=== PATIENT | female | born 1995 | race Caucasian/White ===

== ENCOUNTER 2021-03-29 10:12 | Day surgery (SDC) | payer SELFPAY ==
[2021-03-29 10:48] VITALS: BMI 21.1
[2021-03-29] MEDS ORDERED: hydrALAZINE 20 MG/ML VIAL SLOW IVP PRN (11:33)
[2021-03-29 12:22] LABS: Bilirubin Neg (Negative); Blood, Urine Negative (Negative); Clarity Slightly Cloudy (Clear); Glucose, Urine (Dipstick) Normal (Negative); Ketone, Urine Negative (Negative); Leukocyte Negative (Negative); Nitrite Negative (Negative); Protein, Urine (Dipstick) 15 mg/dl (Neg-Trace); Urobilinogen Normal mg/dL (Less than 2)
[2021-03-29 12:33] LABS: Bacteria/HPF 2+ HPF (None Seen); RBC/HPF 0-3 HPF (0-3); Squamous Epithelial 0-3 HPF (0-3); WBC/HPF 0-3 HPF (0-3)
== END 2021-03-29 13:45 | disposition home or self-care (01) ==
LOC: CSHLD/OP 10:12
PROVIDERS: ATTEND Obstetrics & Gynecology
DX: O99.891 Other specified diseases and conditions complicating pregnancy (principal); O99.342 Other mental disorders complicating pregnancy, second trimester; R10.32 Left lower quadrant pain; F32.A Depression, unspecified; Z3A.35 35 weeks gestation of pregnancy; Z3A.25 25 weeks gestation of pregnancy; Z79.899 Other long term (current) drug therapy
CPT/HCPCS: 76770; 81001; 99282

== ENCOUNTER 2021-07-13 05:43 | Inpatient (IN) | payer SELFPAY ==
[2021-07-13 06:33] VITALS: BMI 24.7
[2021-07-13] MEDS ORDERED: Bupivacaine HCl 0.5%/Epinephrine 1:200,000/PF 30 ml Vial ONE (07:00)
[2021-07-13] MEDS ORDERED: ePHEDrine Sulfate 50 MG/10 ML VIAL ONE (07:00)
[2021-07-13] MEDS ORDERED: Promethazine HCl 25 MG/ML VIAL IM PRN ×2 (08:55→22:31)
[2021-07-13] MEDS ORDERED: Ondansetron PF 4 MG/2 ML Vial IVP PRN ×2 (08:55→22:31)
[2021-07-13] MEDS ORDERED: hydrALAZINE 20 MG/ML VIAL SLOW IVP PRN (08:55)
[2021-07-13] MEDS ORDERED: Acetaminophen 500 MG TAB PO PRN (08:55)
[2021-07-13] MEDS ORDERED: Butorphanol Tartrate 1 MG/ML VIAL SLOW IVP PRN (08:55)
[2021-07-13] MEDS ORDERED: Lidocaine 1% (PF) 30 ML VIAL SC PRN (08:55)
[2021-07-13] MEDS ORDERED: NS w/ Oxytocin 30 units 500 ML IV SCH (09:00)
[2021-07-13 09:20] LABS: Hemoglobin 10.5 g/dL (12.0-15.5); Mean Corpuscular Volume 84.8 fl (81.6-98.3); Mean Platelet Volume 10.9 fl (7.4-10.4); Platelet Count 226 10x3/uL (150-450); RBC Distribution Width 12.7 % (11.5-14.5); Red Blood Cell (RBC) Count 3.75 10x6/uL (3.90-5.03); White Blood Cell (WBC) Count 10.9 10x3/uL (3.5-10.5)
[2021-07-13 09:39] LABS: #Monocytes 1.2 10x3/uL (0.0-1.1); #Neutrophils 11.5 10x3/uL (1.5-8.4); %Basophils 0.1 % (0.0-2.0); %Eosinophils 0.3 % (0.0-6.0); %Monocytes 8.4 % (0.0-10.0); %Neutrophils 81.7 % (40.0-75.0); Hemoglobin 10.6 g/dL (12.0-15.5); Mean Corpuscular HGB CONC 33.9 g/dL (32.0-36.0); Mean Corpuscular Volume 82.6 fl (81.6-98.3); Mean Platelet Volume 10.3 fl (7.4-10.4); Platelet Count 208 10x3/uL (150-450); RBC Distribution Width 12.9 % (11.5-14.5); Red Blood Cell (RBC) Count 3.79 10x6/uL (3.90-5.03); White Blood Cell (WBC) Count 14.1 10x3/uL (3.5-10.5)
[2021-07-13 10:19] LABS: HIV (1/2) Antibody/Antigen Non-Reactive (NonReactive); HIV 1/2 INDEX 0.06 S/CO (<1.00); Hep B Surf Ag Non-Reactive S/CO (NonReactive); Syphilis Antibody Nonreactive (Nonreactive); Syphilis Antibody Index 0.05 S/CO (<1.00 Non-Reactive)
[2021-07-13 10:34] LABS: HBSAg Index 0.17 S/CO (0-0.99)
[2021-07-13] MEDS ORDERED: Oxytocin 10 UNITS/ML VIAL ONE (14:58)
[2021-07-13] MEDS ORDERED: Misoprostol 200 MCG TAB ONE (14:59)
[2021-07-13] MEDS ORDERED: Fentanyl 2 mcg/Bup 0.1% Cadd 100 ML ONE (22:03)
[2021-07-13] MEDS: Lactated Ringer's 1,000 ML IV SCH (22:12)
[2021-07-13] MEDS ORDERED: diphenhydrAMINE 50 MG/ML VIAL IVP PRN (22:31)
[2021-07-13] MEDS ORDERED: Lactated Ringer's 500 ML IV PRN (22:31)
[2021-07-13] MEDS ORDERED: Hydrocerin (Eucerin) Cream 120 gm Jar TOP PRN (22:31)
[2021-07-13] MEDS ORDERED: Acetaminophen 325 MG TAB PO PRN (22:31)
[2021-07-13] MEDS ORDERED: ePHEDrine Sulfate 50 MG/10 ML VIAL SLOW IVP PRN (22:31)
[2021-07-13] MEDS ORDERED: Naloxone HCl 0.4 mg/ml Vial IVP PRN ×2 (22:31)
[2021-07-13] MEDS ORDERED: Fentanyl 2 mcg/Bupivacaine 0.1% Cassette 100 ML EPIDURAL SCH (22:45)
[2021-07-13] MEDS ORDERED: Communication Order-Pharmacy FS SCH (22:45)
[2021-07-14] MEDS ORDERED: Ibuprofen 800 MG TAB ONE (04:07)
[2021-07-14] MEDS ORDERED: Ondansetron PF 4 MG/2 ML Vial IVP PRN (06:15)
[2021-07-14] MEDS ORDERED: Bisacodyl 10 MG SUPP PR PRN (06:15)
[2021-07-14] MEDS ORDERED: HYDROcodone/Acetaminophen 5/325 mg Tablet PO PRN ×2 (06:15)
[2021-07-14] MEDS ORDERED: NS w/ Oxytocin 30 units 500 ML IV SCH (06:15)
[2021-07-14] MEDS ORDERED: Milk Of Magnesia 30 ML UDCUP PO PRN (06:15)
[2021-07-14] MEDS ORDERED: hydrALAZINE 20 MG/ML VIAL SLOW IVP SCH (06:15)
[2021-07-14] MEDS ORDERED: Boostrix 0.5 ML (Tdap) VIAL IM ONE (06:30)
[2021-07-14] MEDS: Docusate Calcium (SURFAK) 240 MG CAP PO SCH ×2 (10:52→21:16)
[2021-07-14] MEDS: Prenatal Vitamin 1 TAB PO SCH (10:52)
[2021-07-14 11:10] LABS: SARS-CoV-2 NAA Rapid Test Not Detected (NotDetected)
[2021-07-14] MEDS: Ibuprofen 800 MG TAB PO SCH ×2 (13:39→21:16)
[2021-07-14] MEDS: Lactated Ringer's 1,000 ML IV SCH ×2 (19:30→19:31)
[2021-07-14] MEDS: Ferrous Sulfate 325 MG TAB PO SCH (19:32)
[2021-07-15] MEDS: Lactated Ringer's 1,000 ML IV SCH ×2 (01:55→10:28)
[2021-07-15] MEDS: Ibuprofen 800 MG TAB PO SCH (06:06)
[2021-07-15 07:51] VITALS: BP 99/52; TEMP 98.2
[2021-07-15] MEDS: Ferrous Sulfate 325 MG TAB PO SCH (08:00)
[2021-07-15] MEDS: Docusate Calcium (SURFAK) 240 MG CAP PO SCH (09:38)
[2021-07-15] MEDS: Prenatal Vitamin 1 TAB PO SCH (09:38)
== END 2021-07-15 11:55 | disposition home or self-care (01) | DRG 807 ==
LOC: CSHLD/OP 05:43 → CSHLD 07:38 → CSHANTE 07-14 08:15
PROVIDERS: ADMIT Family Medicine; ATTEND Family Medicine
PROC: 10907ZC Drainage of Amniotic Fluid, Therapeutic from Products of Conception, Via Natural or Artificial Opening (ICD-10-PCS; 2021-07-13)
PROC: 10E0XZZ Delivery of Products of Conception, External Approach (ICD-10-PCS; principal; 2021-07-15)
PROC: 0KQM0ZZ Repair Perineum Muscle, Open Approach (ICD-10-PCS; 2021-07-15)
DX: O99.344 Other mental disorders complicating childbirth (principal); Z37.0 Single live birth; Z3A.40 40 weeks gestation of pregnancy; Z20.822 Contact with and (suspected) exposure to COVID-19; F41.9 Anxiety disorder, unspecified; F32.A Depression, unspecified; O70.1 Second degree perineal laceration during delivery
CPT/HCPCS: 36415; 51702; 85027; 85461; 86780; 86850; 86900; 86901; 87340; 87389; 90384; 96372; 99285; J2590; J7120; U0002

== ENCOUNTER 2024-07-01 14:34 | Inpatient (IN) | payer BC ==
[2024-07-01 15:29] LABS: Hematocrit 37.2 % (34.9-44.5); Hemoglobin 12.5 g/dL (12.0-15.5); Mean Corpuscular HGB CONC 33.6 g/dL (32.0-36.0); Mean Corpuscular Hemoglobin 28.9 pg (27.0-33.0); Mean Corpuscular Volume 86.1 fL (81.6-98.3); Mean Platelet Volume 10.3 fL (7.4-10.4); Platelet Count 223 10x3/uL (150-450); RBC Distribution Width 12.6 % (11.5-14.5); Red Blood Cell (RBC) Count 4.32 10x6/uL (3.90-5.03); White Blood Cell (WBC) Count 16.76 10x3/uL (3.5-10.5)
[2024-07-01] MEDS ORDERED: HYDROcodone/Acetaminophen 5/325 mg Tablet PO PRN ×2 (16:04→19:24)
[2024-07-01] MEDS ORDERED: Lidocaine 1% (PF) 30 ML VIAL SC PRN (16:04)
[2024-07-01 16:05] LABS: Syphilis Antibody Nonreactive (Nonreactive); Syphilis Antibody Index 0.05 S/CO (<1.00 Non-Reactive)
[2024-07-01 16:15] LABS: HBsAg Index 0.18 S/CO (0-0.99); Hep B Surf Ag - L&D Non-Reactive S/CO (NonReactive)
[2024-07-01] MEDS: Ibuprofen 800 MG TAB PO PRN (17:14)
[2024-07-01] MEDS ORDERED: hydrALAZINE 20 MG/ML VIAL SLOW IVP PRN (19:24)
[2024-07-01] MEDS ORDERED: Bisacodyl 10 MG SUPP PR PRN (19:24)
[2024-07-01] MEDS ORDERED: Ondansetron PF 4 MG/2 ML Vial IVP PRN (19:24)
[2024-07-01] MEDS ORDERED: Milk Of Magnesia 30 ML UDCUP PO PRN (19:24)
[2024-07-01] MEDS: Ferrous Sulfate 325 MG TAB PO SCH (21:30)
[2024-07-01] MEDS: Docusate 100 MG CAP PO SCH (21:38)
[2024-07-02] MEDS: Ibuprofen 800 MG TAB PO SCH (00:13)
[2024-07-02] MEDS: Benzocaine-Menthol 82.5 ML CAN TOP PRN (00:14)
[2024-07-02] MEDS: Lidocaine 1% (PF) 30 ML VIAL ONE (01:30)
[2024-07-02] MEDS: Oxytocin 30 units/NS 500 ML 500 ML ONE (01:30)
[2024-07-02] MEDS: Oxytocin 10 UNITS/ML VIAL ONE (01:30)
[2024-07-02] MEDS: Ferrous Sulfate 325 MG TAB PO SCH (08:15)
[2024-07-02 11:13] VITALS: BP 100/54; TEMP 98.4
== END 2024-07-02 17:07 | disposition home or self-care (01) | DRG 807 ==
LOC: EEVIPCON 14:34 → CSHLD/OP 14:34 → CSHLD 15:05 → CSHPED 18:35
PROVIDERS: ADMIT Family Medicine; ATTEND Family Medicine
PROC: 10E0XZZ Delivery of Products of Conception, External Approach (ICD-10-PCS; principal; 2024-07-01)
PROC: 0HQ9XZZ Repair Perineum Skin, External Approach (ICD-10-PCS; 2024-07-01)
PROC: 3E0334Z Introduction of Serum, Toxoid and Vaccine into Peripheral Vein, Percutaneous Approach (ICD-10-PCS; 2024-07-01)
DX: O42.02 Full-term premature rupture of membranes, onset of labor within 24 hours of rupture (principal); Z37.0 Single live birth; O70.0 First degree perineal laceration during delivery; Z3A.40 40 weeks gestation of pregnancy; O26.893 Other specified pregnancy related conditions, third trimester; Z67.21 Type B blood, Rh negative
CPT/HCPCS: 36415; 85461; 86780; 86850; 86900; 86901; 87340; 90384; 96372; 99285; J2590